=== PATIENT | male | born 1940 | race Caucasian/White ===

== ENCOUNTER → 2019-08-15 14:41 | Outpatient (CLI) | payer MEDICARE, SELFPAY ==
[2019-07-28 09:40] VITALS: BMI 22.9
--- NOTE | 2019-08-15 14:44 | ECHOD_ITS ---
Reason For Study: HTN Procedure This was a 2D Doppler, Color Flow transthoracic echocardiogram. The study was technically difficult. Exam performed in department. Left Ventricle Normal size and thickness. The estimated ejection fraction is 65 %. Stage 1 diastolic dysfunction. No regional wall motion abnormalities noted. Right Ventricle Normal size and thickness. Normal systolic function. Atria Normal left atrium. Normal right atrium. Normal atrial septum. Mitral Valve Mild diffuse mitral valve thickening. Tricuspid Valve Normal tricuspid valve. Unable to estimate RV systolic pressure due to insufficient tricuspid regurgitant envelope. Aortic Valve Trisinus/trileaflet aortic valve. Mild diffuse aortic valve thickening. There is no aortic stenosis. Trivial aortic valve insufficiency. Pulmonic Valve Normal pulmonic valve. Trivial pulmonic valve insufficiency. Great Vessels Normal aortic root. Mild atherosclerosis of the aortic arch. Normal inferior vena cava. Inferior vena cava collapse with sniff. Pericardium/Pleural No pericardial effusion. MMode/2D Measurements & Calculations LVIDd: 4.4 cm IVSd: 0.81 cm Ao root diam: 3.7 cm LVIDs: 3.4 cm LVPWd: 0.81 cm RVDd: 3.4 cm FS: 22.8 % LAV(MOD-bp): 23.8 ml LA A4 area: 13.0 cm2 LA dimension(2D): 3.0 cm LAV(MOD-bp) Indexed: 13.8 ml/m2 LAV(MOD-sp2): 20.0 ml LAV(MOD-sp4): 28.9 ml RA A4 area: 11.7 cm2 Time Measurements MV dec time: 0.22 sec Doppler Measurements & Calculations MV E max skinny: 79.9 cm/sec Lat Peak E' Skinny: 6.2 cm/sec Med Peak E' Skinny: 7.9 cm/sec MV A max skinny: 95.0 cm/sec E/E' lat: 12.9 E/E' med: 10.1 MV E/A: 0.84 Ao V2 max: 125.5 cm/sec LV V1 max: 105.6 cm/sec Ao max P.3 mmHg LV V1 max P.5 mmHg Interpretation Summary The estimated ejection fraction is 65 %. Stage 1 diastolic dysfunction. Unable to estimate RV systolic pressure due to insufficient tricuspid regurgitant envelope. There is no aortic stenosis. Compared to echo report dated 07/20/2013, no appreciable changes noted. Ordering Physician: Grant Davis Referring Physician: FELIPA SULLIVAN Performed By: Christy Esteban RDCS, RVT
== END ==
PROVIDERS: Family Provider Student in an Organized Health Care Education/Training Program; PCP Student in an Organized Health Care Education/Training Program; Referring Provider Internal Medicine Cardiovascular Disease; Visit Provider Internal Medicine Cardiovascular Disease
DX: I49.1 Atrial premature depolarization (principal); I10 Essential (primary) hypertension
CPT/HCPCS: 93306

== ENCOUNTER → 2023-12-02 | Outpatient (CLI) | payer MEDICARE, SELFPAY ==
--- OUTSIDE RECORDS SUMMARY | 2023-12-02 11:20 | XMS RPT_ITS | CCD ---
Author Name Unknown Address [address] [place] [address] Organization [facility] Care Team Providers Care Flour Blender Name Role Phone Aleah DIAZ, Rosmery Randolph Unavailable Unavailable Dwaine, JOE, Sheryl Celaya Unavailable Unavailabl e Eryn Gan Unavailable Unavailable Moshe SAWMILL WORKER.Gurvinder ALCOCER Primary Care Provider Moshe SAWMILL WORKER.Gurvinder ALCOCER Primary Care Provider Moshe SAWMILL WORKER.Gurvinder ALCOCER Primary Care Provider GURVINDER MORTENSEN Primary Care Unavailable RAYSHAWN RIDER Referring Unavaila ble GURVINDER MORTENSEN Primary Care Unavailable GURVINDER MORTENSEN Referring Unavailable GURVINDER MORTENSEN Referring Unavailable GURVINDER MORTENSEN Attending Unavailable GURVINDER MORTENSEN Primary Care Unavailable Allergies Allergy Classification Reported Allergen(s) Allergy Type Date of Onset Reaction(s) Facility (3 sources) acetaminophen / HYDROcodone Drug Allergy 3 GI upset (nausea, vomiting) [employer] Work Phone: (10 sources) Acetaminophen / HYDROcodone; Translations: [HYDROCODONE-ACETA MINOPHEN] Drug Allergy 3 Other: See Comments [facility] Medications Completed/Discontinued Medications Medication Drug Class(es) Dates Sig (Normalized) Sig (Original) aspirin 81 mg oral tablet (18 sources) Nonsteroidal Anti-inflammatory Drug Start: 07-14-2013 take 1 tablet by mouth once daily ASPIRIN 81 MG TABS One tablet by mouth daily ASPIRIN [id number] Grant Davis MD Problems Active Problems Problem Classification Problem Date Documented Da te Episodic/Chronic Cardiac dysrhythmias (15 sources) Premature atrial contraction; Translations: [Paroxysmal atrial fibrillation] Onset: 07-04-2016 07-04-2016 Chronic Conditions associated with dizziness or vertigo (1 source) Vertigo; Translations: [Dizziness and giddiness] Episodic Disorders of lipid metabolism (12 sources) Hyperlipidemia; Translations: [Hyperlipidemia, unspecified] Onset: 02-02-2020 02-02-2020 Chronic Essential hypertension (15 sources) Hypertensive disorder; Translations: [Essential hypertension] Onset: 06-30-2014 06-30-2014 Chronic Hyperplasia of prostate (12 sources) Weak urinary stream due to benign prostatic hypertrophy; Translations: [Benign prostatic hyperplasia with lower urinary tract symptoms] Onset: 02-01-2019 02-01-2019 Chronic Nutritional deficiencies (1 source) Vitamin D deficiency; Translations: [Vitamin D deficiency, unspecified] Chronic Other screening for suspected conditions (not mental disorders or infectious disease) (2 sources) Patient encounter status; Translations: [Encounter for screening for other suspected endocrine disorder] Onset: 08-07-2023 Episodic Past or Other Problems Problem Classification Problem Date Documented Date Episodic/Chronic Allergic reactions (2 sources) Environmental allergy; Translations: [Other allergy status, other than to drugs and biological substances] Onset: 01-22-2023 Episodic Cardiac dysrhythmias (9 sources) Tachycardia; Translations: [Palpitations] Onset: 07-07-2013 Resolved: 07-04-2016 07-04-2016 Episodic Deficiency and other anemia (9 sources) Anemia; Translations: [Anemia, unspecified] Onset: 02-01-2019 02-01-2019 Episodic Genitourinary symptoms and ill-defined conditions (1 source) Poor urinary stream; Translations: [Benign prostatic hyperplasia with weak urinary stream] Onset: 02-01-2019 Episodic Unclassified (6 sources) Family history of ischemic heart disease and other diseases of the circulatory system; Translations: [FH: Hypertension] 07-11-2014 Episodic Results Test Name Value Interpretation Reference Range Facil ity Vital Signs Date Time Vital Sign Value Performing Clinician Facility 01-22-2023 11:06-0400 Diastolic blood pressure 70 mm[Hg] Gurvinder Mortesnen APRN.CNP Work Phone: [facility] 01-22-2023 11:06-0400 Systolic blood pressure 132 mm[Hg] Gurvinder Mortensen APRN.CNP Work Phone: [facility] 01-22-2023 10:51-0400 Body height 172.7 cm Gurvinder Moshe SAWMILL WORKER.APPLICATION SUPPORT ANALYST Work Phone: [facility] 01-22-2023 10:51-0400 Body temperature 97.59 [degF] Gurvinder Moshe SAWMILL WORKER.APPLICATION SUPPORT ANALYST Work Phone: [facility] 01-22-2023 10:51-0400 Body weight 63.05 kg Gurvinder Moshe SAWMILL WORKER.APPLICATION SUPPORT ANALYST Work Phone: [facility] 01-22-2023 10:51-0400 Heart rate 59 /min Gurvinder Moshe SAWMILL WORKER.APPLICATION SUPPORT ANALYST Work Phone: [facility] 01-22-2023 10:51-0400 Respiratory rate 18 /min Gurvinder Moshe SAWMILL WORKER.APPLICATION SUPPORT ANALYST Work Phone: [facility] 01-22-2023 10:51-0400 SaO2% (BldA) [Mass fraction] 97 % Gurvinder Moshe SAWMILL WORKER.APPLICATION SUPPORT ANALYST Work Phone: [facility] 05-29-2022 09:31-0400 Body height 172.7 cm Gurvinder Moshe SAWMILL WORKER.APPLICATION SUPPORT ANALYST Work Phone: [facility] 05-29-2022 09:31-0400 Body temperature 98.2 [degF] Gurvinder Moshe SAWMILL WORKER.APPLICATION SUPPORT ANALYST Work Phone: [facility] 05-29-2022 09:31-0400 Body weight 62.14 kg Gurvinder Moshe SAWMILL WORKER.APPLICATION SUPPORT ANALYST Work Phone: [facility] 05-29-2022 09:31-0400 Diastolic blood pressure 70 mm[Hg] Gurvinder Moshe SAWMILL WORKER.APPLICATION SUPPORT ANALYST Work Phone: [facility] 05-29-2022 09:31-0400 Heart rate 53 /min Gurvinder Moshe SAWMILL WORKER.APPLICATION SUPPORT ANALYST Work Phone: [facility] 05-29-2022 09:31-0400 Respiratory rate 18 /min Gurvinder Moshe SAWMILL WORKER.APPLICATION SUPPORT ANALYST Work Phone: [facility] 05-29-2022 09:31-0400 SaO2% (BldA) [Mass fraction] 98 % Gurvinder Moshe SAWMILL WORKER.APPLICATION SUPPORT ANALYST Work Phone: [facility] 05-29-2022 09:31-0400 Systolic blood pressure 128 mm[Hg] Gurvinder Moshe SAWMILL WORKER.APPLICATION SUPPORT ANALYST Work Phone: [facility] 04-28-2022 11:33-0400 Body height 172.7 cm Gurvinder Moshe SAWMILL WORKER.APPLICATION SUPPORT ANALYST Work Phone: [facility] 04-28-2022 11:33-0400 Body temperature 98.2 [degF] Gurvinder Moshe SAWMILL WORKER.APPLICATION SUPPORT ANALYST Work Phone: [facility] 04-28-2022 11:33-0400 Body weight 60.33 kg Gurvinder Moshe SAWMILL WORKER.APPLICATION SUPPORT ANALYST Work Phone: [facility] 04-28-2022 11:33-0400 Respiratory rate 18 /min Gurvinder Moshe SAWMILL WORKER.APPLICATION SUPPORT ANALYST Work Phone: [facility] 04-28-2022 11:33-0400 SaO2% (BldA) [Mass fraction] 97 % Gurvinder Moshe SAWMILL WORKER.APPLICATION SUPPORT ANALYST Work Phone: [facility] 01-15-2017 14:05-0400 BMI (Body Mass Index) 20.77 kg/m2 JOE [facility] Work Phone: 01-15-2017 14:05-0400 BP Diastolic 70 mm[Hg] JOE [facility] Work Phone: 01-15-2017 14:05-0400 BP Systolic 134 mm[Hg] JOE [facility] Work Phone: 01-15-2017 14:05-0400 Height 172.72 cm JOE [facility] Work Phone: 01-15-2017 14:05-0400 Pulse (Heart Rate) 80 /min [facility] Work Phone: 01-15-2017 14:05-0400 Respiratory Rate 18 /min [facility] Work Phone: 01-15-2017 14:05-0400 Weight 61.96 kg JOE [facility] Work Phone: 07-11-2016 09:47-0400 BSA (Body Surface Area) 1.76 m2 JOE [facility] Work Phone: 07-11-2016 09:47-0400 Pulse Oximetry 96 % JOE [facility] Work Phone: Encounters Encounter Date Encounter Type Care Provider Facility Start: 08-07-2023 End: 08-08-2023 ambulatory GURVINDER MORTENSEN Facility:[facility] Start: 01-28-2023 Telephone encounter Gurvinder Mortensen SAWMILL WORKER.APPLICATION SUPPORT ANALYST Work Phone: [facility] Procedures Date Procedure Procedure Detail Performing Clinician Start: 07-15-2017 End: 07-20-2017 *Hepatic Function Panel Grant Davis MD Work Phone: Start: 07-15-2017 End: 07-20-2017 Lipid 1996 panel - Serum or Plasma Grant Davis MD Work Phone: Start: 01-15-2017 End: 01-15-2017 RON Meza CARDIOVASCULAR SURGICAL TECH-C Start: 01-15-2017 End: 01-15-2017 Follow Up Appt 6 months Patel Meza CARDIOVASCULAR SURGICAL TECH -C Start: 07-11-2016 End: 07-14-2016 *Hepatic Function Panel Grant Davis MD Work Phone: Start: 07-11-2016 End: 07-11-2016 RON Davis MD Work Phone: Start: 07-11-2016 End: 07-11-2016 Follow Up Appt 6 months Grant Davis MD Work Phone: Start: 07-11-2016 End: 07-14-2016 Lipid 1996 panel - Serum or Plasma Grant Davis MD Work Phone: Start: 07-16-2015 End: 07-16-2015 RON Davis MD Work Phone: Start: 07-16-2015 End: 07-16-2015 Follow Up Appt 1 year Yomi Golden Work Phone: Start: 07-16-2015 End: 07-16-2015 Follow Up BP Check Grant Davis MD Work Phone: Start: 07-11-2014 End: 07-11-2014 RON Davis MD Work Phone: Start: 07-11-2014 End: 07-11-2014 Follow Up Appt 1 year Yomi Golden Work Phone: Start: 06-30-2014 End: 07-05-2015 *Microalbumin, Creatine Ratio, rand urine Grant Davis MD Work Phone: Start: 07-14-2013 End: 07-14-2013 RON Davis MD Work Phone: Start: 07-14-2013 End: 07-22-2013 Echocardiography Grant Davis MD Work Phone: Start: 07-14-2013 End: 07-14-2013 Follow Up Appt 1 year Yomi Golden Work Phone: Start: 07-14-2013 End: 06-30-2014 Xtrnl mobile cv telemetry w/i&report 30 days Garnt Davis MD Work Phone: Plan of Treatment Date Care Activity Detail Author Start: 02-02-2028 Urine microalbumin profile DTA P,TDAP,TD (2 - Td or Tdap) [facility] Start: 01-22-2026 DIABETES SCREEN DIABETES SCREEN [facility] Start: 05-29-2025 DIABETES SCREEN DIABETES SCREEN [facility] Start: 04-08-2025 DIABETES SCREEN DIABETES SCREEN [facility] Start: 05-22-2023 Influenza vaccination INFLUENZ A (Season Ended) [facility] Start: 04-28-2023 COVID-19 VACCINE (4 - Booster for Moderna series) COVID-19 VACCINE (4 - Booster for Moderna series) [facility] Immunizations Immunization Date Immunization Notes Care Provider Donaldo preciado 07-23-2020 zoster vaccine, recombinant, adjuvanted, (SHINGRIX) 50 mcg/0.5 mL injection Marlin López MA [facility] Work Phone: Payers Date Payer Category Payer Medicare UHC AARP MEDICAR E UHC AARP MEDICARE HMO [id number] 2019-Present [phone] [address] [address] [place] [address] [facility] [id number] 2019 Medicare UHC AARP MEDICAR E UHC AARP MEDICARE HMO [id number] 2019-Present [phone] [address] [address] [place] [address] [facility] [id number] 2019 Medicare [id number] Social History Date Type Detail Facility Start: 09-29-2017 [facility] History of tobacco use Pipe Smoker [facility] History of tobacco use Cigar Smoker [facility] Start: 09-29-2017 Tobacco use and exposure Tong mosher smokeless tobacco user [facility] Start: 04-08-2022 End: 01-22-2023 Alcohol intake Current drinker of alcohol (finding) [facility] Start: 09-29-2017 History SDOH Alcohol Comment Occasional Beer and Wine [facility] Start: 09-29-2017 Tobacco Comment 23 years ago [facility] Start: 1940 Sex Assigned At Not on file [facility] Start: 03-29-2022 End: 05-29-2022 Exposure to SARS-CoV-2 (event) Not sure [facility] Start: 04-07-2022 End: 04-17-2022 Exposure to SARS-CoV-2 (event) Unable to assess [facility] History of tobacco use Current smoker [facility] Clinical Notes 04-10-2022 to 01-28-2023 Telephone Encounter - Nery Melendrez MA - 01/28/2023 2:58 PM EDTTelephone Encounter - Nery Melendrez MA - 01/28/2023 2:58 PM EDTTelephone Encounter - Nery Melendrez MA - 01/22/2023 4:16 PM EDT Note Date & Type Note Facility 01-28-2023 Miscellaneous Notes Called pt left VM with results faxed results to his urologist Nery Melendrez MA ----- Message from Gurvinder Mortensen APRN.APPLICATION SUPPORT ANALYST sent at 01/26/2023 6:53 AM EDT ----- Psa remains elevated but much improved and lower than previous years. Please fax copy to Dr Bernard his Urologist. documented in this encounter [facility] 01-22-2023 Miscellaneous Notes Called pt let pts know the results Nery Melendrez MA ----- Message from Gurvinder Mortensen APRN.APPLICATION SUPPORT ANALYST sent at 01/22/2023 12:36 PM EDT ----- CMP unremarkable. Sugar stable Lipids at goal ----- Message from Gurvinder Mortensen APRN.APPLICATION SUPPORT ANALYST sent at 01/22/2023 12:25 PM EDT ----- Cbc stable with improvement in his HGB documented in this encounter [facility] 01-22-2023 Note HNO ID: [id number] Author: Gurvinder Mortensen APRN.APPLICATION SUPPORT ANALYST Service: ? Author Type: Nurse Practitioner Type: Progress Notes Filed: 01/22/2023 12:35 PM Note Text: SUBJECTIVE: Ruma Mcintyre is a 82 year old male who presents in follow up of HTN. PMH afib, anemia, and HLD. Patient denies changes in health since last office visit. Reports feeling well. Denies concerns or complaints today. I reviewed his past medical, surgical, social, and family histories today and updated chart. Allergies, chronic medications, and supplements were also reviewed and his list is now up to date. HTN: Mr. Mcintyre indicates that he is feeling well and denies any symptoms referable to elevated blood pressure. Specifically denies headache, chest pain, palpitations, dyspnea, peripheral edema, claudication symptoms, orthopnea, fatigue, and PND. Patient denies any side effects of his medication(s) and is compliant with their regimen. He does not check BP's generally. Ruma denies regular aerobic exercise but is very active.. He watches his diet for sodium, low fat and low cholesterol generally not very much. He is taking metoprolol 25 mg twice daily. Last 3 Encounter BP Readings: Date: BP: 05/29/2022 128/70 04/08/2022 165/74 07/23/2020 142/70 Atrial Fib: he is seeing cardiology, Dr Page (was seeing Dr Davis who is no longer there) in [place] for mangement. He was last seen 11/28/19. He is taking metoprolol for management. Reports he saw cardiology in May. Reports no changes made. Reports he was told his afib is controlled. BPH: He sees urology Dr Bernard in [place] for elevated PSA. He followed up with him last year. No changes made. He is taking proscar daily. Reports he continues with dribble but denies change or worsening of symptom Some elements of above documentation were copied from my progress note of 07/23/20 and have been reexamined and updated where appropriate. All elements reflect the current assessment and medical decision making today . PAST MEDICAL HISTORY Diagnosis Date A-fib (HCC) Arthritis Hypertension Multiple allergies Prostate disorder PAST SURGICAL HISTORY Procedure Laterality Date EXTENSIVE ANKLE/HEEL SURGERY Right 1993 Shattered Heel HERNIA REPAIR HX 2000 Double Hernia Social History Tobacco Use Smoking status: Former Types: Pipe, Cigars Smokeless tobacco: Former Tobacco comments: 23 years ago Substance Use Topics Alcohol use: Yes Comment: Occasional Beer and Wine Drug use: No Family history reviewed. ALLERGIES Allergen Reactions Hydrocodone-Acetami* Other: See Comments Current Outpatient Medications Medication Sig meclizine (ANTIVERT) 25 mg tab Take 1 tablet by mouth three times daily as needed for up to 30 doses. zoster vaccine, recombinant, adjuvanted, (SHINGRIX) 50 mcg/0.5 mL injection Inject 0.5 mL intramuscularly now and repeat 2nd dose in 2-6 months potassium gluconate 595 mg (99 mg) TbER Take 1 tablet by mouth once daily. METOPROLOL SUCCINATE ORAL Take 25 mg by mouth twice daily. aspirin, enteric coated (ASPIRIN, ENTERIC COATED) 81 mg EC tablet Take 81 mg by mouth once daily. VITAMIN E, DL,TOCOPHERYL ACET, (VITAMIN E, DL, ACETATE,) 400 unit capsule Take 400 Units by mouth once daily. UBIDECARENONE (ULTRA COQ10 ORAL) Take 200 mg by mouth once daily. TURMERIC, BULK, MISC 500 mg once daily. GLUCOSAM/TIP-MSM1/C/MADI/BOSW (OSTEO BI-FLEX TRIPLE STRENGTH ORAL) Take 1 capsule by mouth once daily. [id number] acid-lutein 400-250 mcg chew Taking every other day Lactobacillus acidophilus 10 billion cell cap Probiotic 10 billion cell capsule Saw Cochran 500 mg cap saw palmetto 500 mg capsule No current facility-administered medications for this visit. Review of Systems Constitutional: Negative for chills, diaphoresis, fever, malaise/fatigue and weight loss. HENT: Negative. Negative for congestion, ear pain, sore throat and tinnitus. Eyes: Negative for blurred vision, double vision, photophobia and pain. Respiratory: Negative for cough, sputum production, shortness of breath and wheezing. Cardiovascular: Negative for chest pain, palpitations, orthopnea and leg swelling. Gastrointestinal: Negative for abdominal pain, blood in stool, constipation, diarrhea, heartburn, melena, nausea and vomiting. Genitourinary: Negative for dysuria, frequency, hematuria and urgency. Musculoskeletal: Positive for joint pain. Negative for back pain, falls, myalgias and neck pain. Reports all over joint pain. States every year gets worse. Da reports some days he has hard time lifting arms. He will occasionally take a tylenol PM 2 at bedtime to help him sleep. Pain left shoulder since last fall when he was working in his basement when he had something and a level hit him in shoulder Skin: Negative for itching and rash. Neurological: Negative for dizziness, tingling, tremors, sensory change, speech change, focal weakness, weakness (more content not included)... [facility] 01-22-2023 Instructions Gurvinder Mortensen APRN.APPLICATION SUPPORT ANALYST - 01/22/2023 11:38 AM EDT ASSESSMENT/PLAN: 1. Essential hypertension - ICD9: 401.9, ICD10: I10 (primary diagnosis) - good control - Continue current medication(s) - Encouraged dietary sodium restriction/DASH diet - Recommended regular aerobic exercise. - Recommend home blood pressure monitoring, to bring results in on next visit - Reviewed risks of HTN and principles of treatment - Goal of BP <130/80 - CBC - COMP METABOLIC PANEL 2. Paroxysmal atrial fibrillation (HCC) - ICD9: 427.31, ICD10: I48.0 - chronic, stable - continue daily asa, metoprolol and management with cardiology 3. Hyperlipidemia, unspecified hyperlipidemia type - ICD9: 272.4, ICD10: E78.5 - to be determined upon return of lab results - Discussed the benefits of regular aerobic exercise and weight loss. - Check fasting lipid panel - Encouraged following a low carbohydrate, healthy oil intake diet. - LIPID PANEL BASIC 4. Benign prostatic hyperplasia with weak urinary stream - ICD9: 600.01, 788.62, ICD10: N40.1, R39.12 - chronic, controlled - PSA/PROSTSPECAG DIAG 5. Environmental allergies - ICD9: V15.09, ICD10: Z91.09 - start Claritin 10 mg once daily Gurvinder Mortensen APRN.APPLICATION SUPPORT ANALYST documented in this encounter [facility] 01-22-2023 History of Presen t illness Narrative SUBJECTIVE: Ruma Mcintyre is a 82 year old male who presents in follow up of HTN. PMH afib, anemia, and HLD. Patient denies changes in health since last office visit. Reports feeling well. Denies concerns or complaints today. I reviewed his past medical, surgical, social, and family histories today and updated chart. Allergies, chronic medications, and supplements were also reviewed and his list is now up to date. HTN: Mr. Mcintyre indicates that he is feeling well and denies any symptoms referable to elevated blood pressure. Specifically denies headache, chest pain, palpitations, dyspnea, peripheral edema, claudication symptoms, orthopnea, fatigue, and PND. Patient denies any side effects of his medication(s) and is compliant with their regimen. He does not check BP's generally. Ruma denies regular aerobic exercise but is very active.. He watches his diet for sodium, low fat and low cholesterol generally not very much. He is taking metoprolol 25 mg twice daily. Last 3 Encounter BP Readings: Date: BP: 05/29/2022 128/70 04/08/2022 165/74 07/23/2020 142/70 Atrial Fib: he is seeing cardiology, Dr Page (was seeing Dr Davis who is no longer there) in [place] for mangement. He was last seen 11/28/19. He is taking metoprolol for management. Reports he saw cardiology in May. Reports no changes made. Reports he was told his afib is controlled. BPH: He sees urology Dr Bernard in [place] for elevated PSA. He followed up with him last year. No changes made. He is taking proscar daily. Reports he continues with dribble but denies change or worsening of symptom Some elements of above documentation were copied from my progress note of 07/23/20 and have been reexamined and updated where appropriate. All elements reflect the current assessment and medical decision making today . PAST MEDICAL HISTORY Diagnosis Date A-fib (HCC) Arthritis Hypertension Multiple allergies Prostate disorder PAST SURGICAL HISTORY Procedure Laterality Date EXTENSIVE ANKLE/HEEL SURGERY Right 1993 Shattered Heel HERNIA REPAIR HX 1999 Double Hernia Social History Tobacco Use Smoking status: Former Types: Pipe, Cigars Smokeless tobacco: Former Tobacco comments: 23 years ago Substance Use Topics Alcohol use: Yes Comment: Occasional Beer and Wine Drug use: No Family history reviewed. ALLERGIES Allergen Reactions Hydrocodone-Acetami* Other: See Comments Current Outpatient Medications Medication Sig meclizine (ANTIVERT) 25 mg tab Take 1 tablet by mouth three times daily as needed for up to 30 doses. zoster vaccine, recombinant, adjuvanted, (SHINGRIX) 50 mcg/0.5 mL injection Inject 0.5 mL intramuscularly now and repeat 2nd dose in 2-6 months potassium gluconate 595 mg (99 mg) TbER Take 1 tablet by mouth once daily. METOPROLOL SUCCINATE ORAL Take 25 mg by mouth twice daily. aspirin, enteric coated (ASPIRIN, ENTERIC COATED) 81 mg EC tablet Take 81 mg by mouth once daily. VITAMIN E, DL,TOCOPHERYL ACET, (VITAMIN E, DL, ACETATE,) 400 unit capsule Take 400 Units by mouth once daily. UBIDECARENONE (ULTRA COQ10 ORAL) Take 200 mg by mouth once daily. TURMERIC, BULK, MISC 500 mg once daily. GLUCOSAM/TIP-MSM1/C/MADI/BOSW (OSTEO BI-FLEX TRIPLE STRENGTH ORAL) Take 1 capsule by mouth once daily. [id number]-rls-[id number] acid-lutein 400-250 mcg chew Taking every other day Lactobacillus acidophilus 10 billion cell cap Probiotic 10 billion cell capsule Saw Cochran 500 mg cap saw palmetto 500 mg capsule No current facility-administered medications for this visit. Review of Systems Constitutional: Negative for chills, diaphoresis, fever, malaise/fatigue and weight loss. HENT: Negative. Negative for congestion, ear pain, sore throat and tinnitus. Eyes: Negative for blurred vision, double vision, photophobia and pain. Respiratory: Negative for cough, sputum production, shortness of breath and wheezing. Cardiovascular: Negative for chest pain, palpitations, orthopnea and leg swelling. Gastrointestinal: Negative for abdominal pain, blood in stool, constipation, diarrhea, heartburn, melena, nausea and vomiting. Genitourinary: Negative for dysuria, frequency, hematuria and urgency. Musculoskeletal: Positive for joint pain. Negative for back pain, falls, myalgias and neck pain. Reports all over joint pain. States every year gets worse. Da reports some days he has hard time lifting arms. He will occasionally take a tylenol PM 2 at bedtime to help him sleep. Pain left shoulder since last fall when he was working in his basement when he had something and a level hit him in shoulder Skin: Negative for itching and rash. Neurological: Negative for dizziness, tingling, tremors, sensory change, speech change, focal weakness, weakness and headaches. Endo/Heme/Allergies: Negative for environmental allergies and polydipsia. Does not bruise/bleed easily. Psychiatric/Behavioral: Negative for depression, memory loss and substance abuse. The patient has insomnia. The patient is not nervous/anxious. Reports he has spirits that will visit him at night. States this has been going on for years. States they will wake him up. Da agrees. Pt is not confused. Da reports she has witnessed some stuff as well. Also reports his neighbors has same thing occurring at their house. Reports he tries to ignore them Reports he cant sleep in one room because they will tell him to get out. States they do wake him. 01/22/23 1051 01/22/23 1106 BP: 158/70 132/70 BP Site: Right Arm BP Position: Sitting BP Cuff Size: Regular Adult Pulse: (!) 59 Resp: 18 Temp: 36.4 C (97.6 F) TempSrc: Oral SpO2: 97% Weight: 63 kg (139 lb) Height: 172.7 cm (5' 8 ) Physical Exam Vitals and nursing note reviewed. Constitutional: General: He is not in acute distress. Appearance: Normal appearance. He is not ill-appearing. HENT: Head: Normocephalic and atraumatic. Mouth/Throat: Mouth: Mucous membranes are moist. Eyes: Pupils: Pupils are equal, round, and reactive to light. Neck: Vascular: No carotid bruit. Cardiovascular: Rate and Rhythm: Normal rate and regular rhythm. Pulses: Normal pulses. Carotid pulses are 2+ on the right side and 2+ on the left side. Radial pulses are 2+ on the right side and 2+ on the left side. Heart sounds: Normal heart sounds, S1 normal and S2 normal. No murmur heard. Pulmonary: Effort: Pulmonary effort is normal. No respiratory distress. Breath sounds: Normal breath sounds. No decreased breath sounds, wheezing, rhonchi or rales. Abdominal: General: Abdomen is flat. Palpations: Abdomen is soft. Tenderness: There is no abdominal tenderness. Musculoskeletal: Right lower leg: No edema. Left lower leg: No edema. Lymphadenopathy: Cervical: No cervical adenopathy. Skin: General: Skin is warm and dry. Neurological: Mental Status: He is alert and oriented to person, place, and time. Psychiatric: Attention and Perception: Attention and perception normal. Mood and Affect: Mood normal. Speech: Speech normal. Behavior: Behavior normal. Behavior is cooperative. Thought Content: Thought content normal. Cognition and Memory: Cognition and memory normal. Judgment: Judgment normal. Component Latest Ref Rng & Units 05/29/2022 Protein, Total 6.3 - 8.0 g/dL 7.1 Albumin 3.9 - 4.9 g/dL 4.7 Calcium 8.5 - 10.2 mg/dL 9.5 Bilirubin, Total 0.2 - 1.3 mg/dL 0.5 Alkaline Phosphatase 38 - 113 U/L 64 AST 14 - 40 U/L 19 ALT 10 - 54 U/L 11 Glucose 74 - 99 mg/dL 100 (H) BUN 9 - 24 mg/dL 13 Creatinine 0.73 - 1.22 mg/dL 0.78 Sodium 136 - 144 mmol/L 142 Potassium 3.7 - 5.1 mmol/L 4.6 Chloride 97 - 105 mmol/L 104 CO2 22 - 30 mmol/L 28 Anion Gap 9 - 18 mmol/L 10 eGFR >=60 mL/min/1.73m 88 WBC 3.70 - 11.00 k/uL 5.85 RBC 4.20 - 6.00 m/uL 3.92 (L) Hemoglobin 13.0 - 17.0 g/dL 12.7 (L) Hematocrit 39.0 - 51.0 % 38.2 (L) MCV 80.0 - 100.0 fL 97.4 MCH 26.0 - 34.0 pg 32.4 MCHC 30.5 - 36.0 g/dL 33.2 RDW-CV 11.5 - 15.0 % 12.2 Platelet Count 150 - 400 k/uL 257 MPV 9.0 - 12.7 fL 9.6 Cholesterol, Total <200 mg/dL 185 Triglyceride <150 mg/dL 61 HDL Cholesterol >39 mg/dL 64 Non HDL Cholesterol <130 mg/dL 121 Fasting Time hrs 12 VLDL Cholesterol <30 mg/dL 12 TC:HDL Ratio <5.10 2.89 LDL Cholesterol <100 mg/dL 109 (H) LDL:HDL Ratio <2.54 1.70 PSA 0.00 - 3.90 ng/mL 9.84 (H) Vitamin D 25 Hydroxy >=30.0 ng/mL 51.6 TSH 0.270 - 4.200 mIU/L 3.310 ASSESSMENT/PLAN: 1. Essential hypertension - ICD9: 401.9, ICD10: I10 (primary diagnosis) - good control - Continue current medication(s) - Encouraged dietary sodium restriction/DASH diet - Recommended regular aerobic exercise. - Recommend home blood pressure monitoring, to bring results in on next visit - Reviewed risks of HTN and principles of treatment - Goal of BP <130/80 - CBC - COMP METABOLIC PANEL 2. Paroxysmal atrial fibrillation (HCC) - ICD9: 427.31, ICD10: I48.0 - chronic, stable - continue daily asa, metoprolol and management with cardiology 3. Hyperlipidemia, unspecified hyperlipidemia type - ICD9: 272.4, ICD10: E78.5 - to be determined upon return of lab results - Discussed the benefits of regular aerobic exercise and weight loss. - Check fasting lipid panel - Encouraged following a low carbohydrate, healthy oil intake diet. - LIPID PANEL BASIC 4. Benign prostatic hyperplasia with weak urinary stream - ICD9: 600.01, 788.62, ICD10: N40.1, R39.12 - chronic, controlled - PSA/PROSTSPECAG DIAG 5. Environmental allergies - ICD9: V15.09, ICD10: Z91.09 - start Claritin 10 mg once daily Gurvinder Mortensen APRN.APPLICATION SUPPORT ANALYST documented in this encounter [facility] 06-03-2022 Miscellaneous Notes Called pt left VM with results Nery Melendrez MA ----- Message from Gurvinder Mortensen APRN.APPLICATION SUPPORT ANALYST sent at 06/01/2022 9:00 PM EDT ----- Vit d wnl Psa remains elevated. Inquire if he is still seeing urologist Dr bernard. If so please send him results. If not recommend he follow up with him. documented in this encounter [facility] 05-29-2022 Miscellaneous Notes Called pt left VM with results Nery Melendrez MA ----- Message from Guvrinder Mortensen APRN.APPLICATION SUPPORT ANALYST sent at 05/29/2022 1:02 PM EDT ----- CMP, TSH, lipids are unremarkable CBC anemia stable. documented in this encounter [facility] 05-29-2022 Instructions Gurvinder Mortensen APRN.APPLICATION SUPPORT ANALYST - 05/29/2022 10:24 AM EDT ASSESSMENT/PLAN: 1. Wellness examination - ICD9: V70.0, ICD10: Z00.00 (primary diagnosis) - Counseled on healthy diet and regular exercise - Counseled on limiting alcohol intake to 2 drinks per day - Depression screening tool completed and reviewed with patient. Based on score and interview, patient is at risk for depression and recommended no further intervention at this time. - Follow up for annual exam in one year 2. Essential hypertension - ICD9: 401.9, ICD10: I10 - good control - Continue current medication(s) - Encouraged dietary sodium restriction/DASH diet - Recommended regular aerobic exercise. - Recommend home blood pressure monitoring, to bring results in on next visit - Reviewed risks of HTN and principles of treatment - Goal of BP <130/80 - Recommended no refined sugar, low refined starch, healthy oil intake (olive oil), healthy protein (fish) along the lines of the Mediterranean diet. - CBC - COMP METABOLIC PANEL 3. Paroxysmal atrial fibrillation (HCC) - ICD9: 427.31, ICD10: I48.0 - Chronic stable - continue metoprolol and management with Dr Page 4. Benign prostatic hyperplasia with weak urinary stream - ICD9: 600.01, 788.62, ICD10: N40.1, R39.12 - asymptomatic - PSA/PROSTSPECAG DIAG 5. Hyperlipidemia, unspecified hyperlipidemia type - ICD9: 272.4, ICD10: E78.5 - to be determined upon return of lab results - Continue current medication. - Encouraged following a low fat, low cholesterol diet. - Discussed the benefits of regular aerobic exercise and weight loss. - Check fasting lipid panel - Encouraged following a low carbohydrate, healthy oil intake diet. - LIPID PANEL BASIC 6. Vitamin D deficiency - ICD9: 268.9, ICD10: E55.9 - VITAMIN D 25 HYDROXY 7. Screening for thyroid disorder - ICD9: V77.0, ICD10: Z13.29 - TSH BLD Gurvinder Mortensen APRN.APPLICATION SUPPORT ANALYST documented in this encounter [facility] 05-29-2022 History of Presen t illness Narrative SUBJECTIVE: Ruma Mcintyre is a 82 year old male who presents in follow up of HTN. PMH afib, anemia, and HLD. Patient denies changes in health since last office visit. Reports feeling well. Denies concerns or complaints today. I reviewed his past medical, surgical, social, and family histories today and updated chart. Allergies, chronic medications, and supplements were also reviewed and his list is now up to date. HTN: Mr. Mcintyre indicates that he is feeling well and denies any symptoms referable to elevated blood pressure. Specifically denies headache, chest pain, dyspnea, peripheral edema, claudication symptoms, orthopnea, fatigue, and PND. Patient denies any side effects of his medication(s) and is compliant with their regimen. He does check BP's away from this office with average BP's in the 120-130s/60s range with occasional low readings. Diastolic reports as low as 48. Ruma works out regularly 7 times per week with walking and very active in yard. He watches his diet for sodium, low fat and low cholesterol most of the time. He is taking metoprolol 25 mg twice daily. He sees dipper and drier at [facility], Dr Page. He has appt in 2 wks for follow up. Last 3 Encounter BP Readings: Date: BP: 05/29/2022 128/70 04/08/2022 165/74 07/23/2020 142/70 Preventative: he has had 3 COVID vaccines. He is not interested in flu vaccine. He drinks beer occasionally. Reports drinking 4-5 beers a day 4-5x/day. PAST MEDICAL HISTORY Diagnosis Date A-fib (HCC) Arthritis Hypertension Multiple allergies Prostate disorder PAST SURGICAL HISTORY Procedure Laterality Date EXTENSIVE ANKLE/HEEL SURGERY Right 1993 Shattered Heel HERNIA REPAIR HX 2000 Double Hernia Social History Tobacco Use Smoking status: Former Types: Pipe, Cigars Smokeless tobacco: Former Tobacco comments: 23 years ago Substance Use Topics Alcohol use: Yes Comment: Occasional Beer and Wine Drug use: No Family history reviewed. ALLERGIES Allergen Reactions Hydrocodone-Acetami* Other: See Comments Current Outpatient Medications Medication Sig meclizine (ANTIVERT) 25 mg tab Take 1 tablet by mouth three times daily as needed for up to 30 doses. potassium gluconate 595 mg (99 mg) TbER Take 1 tablet by mouth once daily. METOPROLOL SUCCINATE ORAL Take 25 mg by mouth twice daily. aspirin, enteric coated (ASPIRIN, ENTERIC COATED) 81 mg EC tablet Take 81 mg by mouth once daily. VITAMIN E, DL,TOCOPHERYL ACET, (VITAMIN E, DL, ACETATE,) 400 unit capsule Take 400 Units by mouth once daily. UBIDECARENONE (ULTRA COQ10 ORAL) Take 200 mg by mouth once daily. TURMERIC, BULK, MISC 500 mg once daily. GLUCOSAM/TIP-MSM1/C/MADI/BOSW (OSTEO BI-FLEX TRIPLE STRENGTH ORAL) Take 1 capsule by mouth once daily. gq-[id number] acid-lutein 400-250 mcg chew Taking every other day Lactobacillus acidophilus 10 billion cell cap Probiotic 10 billion cell capsule Saw Cochran 500 mg cap saw palmetto 500 mg capsule zoster vaccine, recombinant, adjuvanted, (SHINGRIX) 50 mcg/0.5 mL injection Inject 0.5 mL intramuscularly now and repeat 2nd dose in 2-6 months No current facility-administered medications for this visit. Review of Systems Constitutional: Negative for chills, diaphoresis, fever, malaise/fatigue and weight loss. HENT: Negative. Negative for congestion, ear pain, sore throat and tinnitus. Eyes: Negative for blurred vision, double vision, photophobia and pain. Respiratory: Negative for cough, sputum production, shortness of breath and wheezing. Cardiovascular: Positive for palpitations. Negative for chest pain, orthopnea and leg swelling. Reports he can feel palpitations on occasionally. States 2-3x/wk. States it will wake him from sleep. States he moves around and it will resolve. Lasts at most 1-2 minutes. Admits to drinking about 4 cups of coffee a day. Gastrointestinal: Negative for abdominal pain, blood in stool, constipation, diarrhea, heartburn, melena, nausea and vomiting. Genitourinary: Negative for dysuria, frequency, hematuria and urgency. Musculoskeletal: Negative for back pain, falls, joint pain, myalgias and neck pain. Skin: Negative for itching and rash. Neurological: Positive for dizziness. Negative for tingling, tremors, sensory change, speech change, focal weakness, weakness and headaches. Dizziness in am when goes to get out of bed. Endo/Heme/Allergies: Negative for environmental allergies and polydipsia. Does not bruise/bleed easily. Psychiatric/Behavioral: Negative for depression and substance abuse. The patient is not nervous/anxious and does not have insomnia. BP 128/70 Pulse 53 Temp (Src) 98.2 (Oral) Resp 18 Ht 5' 8 (1.73m) Wt 137 lb (62.1kg) SpO2 98% BMI 20.84 kg/(m^2). Physical Exam Vitals and nursing note reviewed. Constitutional: General: He is not in acute distress. Appearance: Normal appearance. He is not ill-appearing. HENT: Head: Normocephalic and atraumatic. Right Ear: Tympanic membrane, ear canal and external ear normal. Decreased hearing noted. Left Ear: Tympanic membrane, ear canal and external ear normal. Decreased hearing noted. Ears: Comments: Bilateral hearing aides Cardiovascular: Rate and Rhythm: Normal rate and regular rhythm. Pulses: Normal pulses. Heart sounds: Normal heart sounds. Pulmonary: Effort: Pulmonary effort is normal. No respiratory distress. Breath sounds: Normal breath sounds. No wheezing or rhonchi. Musculoskeletal: General: Normal range of motion. Neurological: Mental Status: He is alert and oriented to person, place, and time. Psychiatric: Mood and Affect: Mood normal. Behavior: Behavior normal. Thought Content: Thought content normal. Judgment: Judgment normal. ASSESSMENT/PLAN: 1. Wellness examination - ICD9: V70.0, ICD10: Z00.00 (primary diagnosis) - Counseled on healthy diet and regular exercise - Counseled on limiting alcohol intake to 2 drinks per day - Depression screening tool completed and reviewed with patient. Based on score and interview, patient is at risk for depression and recommended no further intervention at this time. - Follow up for annual exam in one year 2. Essential hypertension - ICD9: 401.9, ICD10: I10 - good control - Continue current medication(s) - Encouraged dietary sodium restriction/DASH diet - Recommended regular aerobic exercise. - Recommend home blood pressure monitoring, to bring results in on next visit - Reviewed risks of HTN and principles of treatment - Goal of BP <130/80 - Recommended no refined sugar, low refined starch, healthy oil intake (olive oil), healthy protein (fish) along the lines of the Mediterranean diet. - CBC - COMP METABOLIC PANEL 3. Paroxysmal atrial fibrillation (HCC) - ICD9: 427.31, ICD10: I48.0 - Chronic stable - continue metoprolol and management with Dr Page 4. Benign prostatic hyperplasia with weak urinary stream - ICD9: 600.01, 788.62, ICD10: N40.1, R39.12 - asymptomatic - PSA/PROSTSPECAG DIAG 5. Hyperlipidemia, unspecified hyperlipidemia type - ICD9: 272.4, ICD10: E78.5 - to be determined upon return of lab results - Continue current medication. - Encouraged following a low fat, low cholesterol diet. - Discussed the benefits of regular aerobic exercise and weight loss. - Check fasting lipid panel - Encouraged following a low carbohydrate, healthy oil intake diet. - LIPID PANEL BASIC 6. Vitamin D deficiency - ICD9: 268.9, ICD10: E55.9 - VITAMIN D 25 HYDROXY 7. Screening for thyroid disorder - ICD9: V77.0, ICD10: Z13.29 - TSH BLD Gurvinder Mortensen APRN.APPLICATION SUPPORT ANALYST documented in this encounter [facility] 04-28-2022 History of Presen t illness Narrative This note was created using NoteWriter. Subjective Ruma Mcintyre is a 82 year old male here today for follow up on [place] ER visit on 04/08/22 for dizziness. PMH afib, HTN, BPH. Pt has not seen here since 2019. He was new to me in 07/2020. [facility] P[facility] Dr Cameron. He is here today with his da Keenan. During ER visit his ECG was NSR, NIH stroke scale 0. CT showed no actue abnormalities. Dx vertigo. Dizziness: reports at times mostly with movement. Reports he becomes dizzy if he turns or makes a quick move he will feel dizzy. Reports no room spinning. States he just feels like he is going to lose balance. Reports when it started he would hear whooshing in his ears. Reports when lights are off or dim he is feels more off balance. Denies fever, chills, feliz, URI symptoms, ear pain, cough, SOB, CP, palpitations. EKG INTERPRETATION: Ordered and Reviewed Rhythm: Normal sinus rhythm Rate: 63 [place]: Normal axis Intervals: Normal UT interval QRS Complex: Normal ST Segment: Normal ST-T segments QT Interval: Normal Compared with Prior: None available Interpretation performed by Ruma Call MD CT brain 04/08/22 IMPRESSION: No acute intracranial findings. Component Latest Ref Rng & Units 04/08/2022 WBC 3.70 - 11.00 k/uL 5.80 RBC 4.20 - 6.00 m/uL 3.79 (L) Hemoglobin 13.0 - 17.0 g/dL 12.3 (L) Hematocrit 39.0 - 51.0 % 37.1 (L) MCV 80.0 - 100.0 fL 97.9 MCH 26.0 - 34.0 pg 32.5 MCHC 30.5 - 36.0 g/dL 33.2 RDW-CV 11.5 - 15.0 % 12.4 Platelet Count 150 - 400 k/uL 231 MPV 9.0 - 12.7 fL 8.9 (L) Neut% % 59.5 Abs Neut (ANC) 1.45 - 7.50 k/uL 3.45 Lymph% % 24.3 Abs Lymph 1.00 - 4.00 k/uL 1.41 Hale% % 13.1 Abs Hale <0.87 k/uL 0.76 Eosin% % 2.4 Abs Eosin <0.46 k/uL 0.14 Baso% % 0.7 Abs Baso <0.11 k/uL 0.04 DTYPE Auto Glucose 74 - 99 mg/dL 106 (H) BUN 9 - 24 mg/dL 8 (L) Creatinine 0.73 - 1.22 mg/dL 0.84 Sodium 136 - 144 mmol/L 141 Potassium 3.7 - 5.1 mmol/L 4.9 Chloride 97 - 105 mmol/L 102 CO2 22 - 30 mmol/L 28 Anion Gap 9 - 18 mmol/L 11 Calcium 8.5 - 10.2 mg/dL 10.2 eGFR >=60 mL/min/1.73m 87 Review of Systems Constitutional: Negative for chills, fatigue and fever. HENT: Positive for rhinorrhea and tinnitus. Negative for congestion, dental problem, ear pain, postnasal drip, sinus pressure and sinus pain. 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 Hearing aide right. Respiratory: Negative for cough, shortness of breath and wheezing. Cardiovascular: Negative for chest pain, palpitations and leg swelling. Gastrointestinal: Negative for diarrhea, nausea and vomiting. Neurological: Positive for dizziness. Negative for headaches. See HPI Objective Temp 36.8 C (98.2 F) Resp 18 Ht 172.7 cm (5' 8 ) Wt 60.3 kg (133 lb) SpO2 97% BMI 20.22 kg/m 04/28/22 1133 04/28/22 1136 04/28/22 1138 Orthostatic BP: 140/72 140/72 132/72 BP Site: Right Arm Right Arm Right Arm BP Position: Supine Sitting Standing BP Cuff Size: Regular Adult Regular Adult Regular Adult Orthostatic Pulse: 53 55 65 Resp: 18 Temp: 36.8 C (98.2 F) SpO2: 97% Weight: 60.3 kg (133 lb) Height: 172.7 cm (5' 8 ) Physical Exam Vitals and nursing note reviewed. Constitutional: General: He is not in acute distress. Appearance: Normal appearance. He is not ill-appearing. HENT: Head: Normocephalic and atraumatic. Right Ear: Tympanic membrane, ear canal and external ear normal. There is no impacted cerumen. Left Ear: Tympanic membrane, ear canal and external ear normal. There is no impacted cerumen. Nose: Nose normal. Eyes: Extraocular Movements: Extraocular movements intact. Right eye: No nystagmus. Left eye: No nystagmus. Pupils: Pupils are equal, round, and reactive to light. Cardiovascular: Rate and Rhythm: Normal rate and regular rhythm. Pulses: Normal pulses. Heart sounds: Normal heart sounds. Pulmonary: Effort: Pulmonary effort is normal. Breath sounds: Normal breath sounds. No wheezing, rhonchi or rales. Skin: General: Skin is warm and dry. Neurological: Mental Status: He is alert and oriented to person, place, and time. Cranial Nerves: Cranial nerves 2-12 are intact. No cranial nerve deficit. Sensory: Sensation is intact. Motor: Motor function is intact. No weakness. Coordination: Coordination is intact. Coordination normal. Gait: Gait normal. Comments: Negative dik halpike Psychiatric: Mood and Affect: Mood normal. Behavior: Behavior normal. Thought Content: Thought content normal. Judgment: Judgment normal. Assessment and Plan ASSESSMENT/PLAN: 1. Vertigo - ICD9: 780.4, ICD10: R42 - symptoms consistent with vertigo. He did have negative Dik Halpike on exam but also currently not symptomatic. No concerning findings on exam. - discussed management of vertigo. Discussed referral to ENT if persists or worsens. Discussed to change positions slowly to avoid falls. - pt has antivert at home which he states he hasnt been taking. Instructed to take this as needed. Gurvinder Mortensen APRN.CARLYN I spent a total of 45 minutes on the date of the service which included preparing to see the patient, [id number] patient care, completing clinical documentation, obtaining and/or reviewing separately obtained history, performing a medically appropriate examination, and counseling and educating the patient/family/caregiver. documented in this encounter [facility] 04-17-2022 Miscellaneous Notes The patient has been scheduled for the first available ED appointment on 04/28/22 at 11:20 am. The patient himself has been notified. Kalpana Prajapati ----- Message from Cassidy Perera sent at 04/17/2022 8:37 AM EDT ----- Regarding: Medicine/ Gurvinder Mortensen/ ED follow up within the week Subject Line Format: Medicine / [Provider Name] / [Issue] Patient has been identified by name and Date of (Y/N): y Patient: Ruma Mcintyre Date of : 1940 Provider for this encounter: Gurvinder Mortensen APRN.CNP Reason for the call/escalation: patient will need a follow up ED appt as soon as possible-only wanted Moshe Was Patient Referred to 91/Seek Emergency Treatment (Y/N): n/a Did Patient Agree (Y/N): n/a Was An Attempt Made To Transfer The Patient To The Office (Y/N): n/a Were You Able To Reach Someone At The Office (Y/N): n/a If Yes - Patient Was Transferred To (Caregivers Name): n/a If No - Which [facility] Leadership Flour Blender Did You Speak With Regarding This Patient: n/a Was an appointment scheduled (Y/N): n/a Reason patient was requesting visit (RFV/signs and symptoms/diagnosis) : ed follow up Person calling if other than patient: Keenan daughter Return call to if other than patient: keenan rodrigues Best contact number: [phone] Thank you, Cassidy Perera April 17, 2022 8:38 AM documented in this encounter [facility] 04-10-2022 History of Presen t illness Narrative ED Follow Up: Patient discharged from [facility] ED on 04/08/22. 1. How are you feeling since your ED visit? Yes Have your symptoms improved or resolved? Yes 2. Were you prescribed any medications while in the ED or advised to stop any medication? Yes - If yes, were you able to fill your prescriptions? Yes -if stopped medication, what was the medication? N/A 3. Were you advised to schedule a follow up appointment with your provider? Yes - If no, Do you feel like you need an appointment scheduled? No - If yes, Do you need this scheduled now or has this already been scheduled? Not applicable 4. Were you able to contact the office or director of graduate medical education provider prior to your ED visit? No 5. Is there anything else I can do for you today? No Marlin López MA documented in this encounter [facility] Wellness examination- Primary Essential hypertension Unspecified essential hypertension Paroxysmal atrial fibrillation (HCC) Atrial fibrillation Benign prostatic hyperplasia with weak urinary stream Hyperlipidemia, unspecified hyperlipidemia type Vitamin D deficiency Unspecified vitamin D deficiency Screening for thyroid disorder [facility] Diagnosis Essential hypertension- Primary Unspecified essential hypertension Paroxysmal atrial fibrillation (HCC) Atrial fibrillation Hyperlipidemia, unspecified hyperlipidemia type Benign prostatic hyperplasia with weak urinary stream Environmental allergies Other allergy, other than to medicinal agents documented in this encounter [facility] Summary Purpose Family History No Family History Records FoundNo Family History Records FoundNo Family History Records Found Advance Directives No Advanced Directives Records FoundDocuments on File Type Date Recorded 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 Advance Directive(s) 04/08/2022 10:55 AM Advance Directive(s) 09/22/2017 8:02 AM Documents on File Type Date Recorded 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 Advance Directive(s) 10/24/2022 12:19 PM Additional Source Comments (unrecognized sect ion and content) No Status Records FoundNo Status Records FoundNo Status Records Found INFORMATION SOURCE (unrecogn ized section and content) DATE CREATED AUTHOR AUTHOR'S ORGANIZ ATION 10/24/2021 [facility] DATE CREATED AUTHOR AUTHOR'S ORGANIZ ATION 08/10/2023 [facility] Source Comments (unrecognize d section and content) In the event this informatio n is protected by the Federal Confidentiality of Alcohol and Drug Abuse Patient Records regulations: The Federal rules restrict any use of the information to criminally investigate or prosecute any alcohol or drug abuse patient.[facility] CenterIn the event this information is protected by the Federal Confidentiality of Alcohol and Drug Abuse Patient Records regulations: The Federal rules restrict any use of the information to criminally investigate or prosecute any alcohol or drug abuse patient.[facility] CenterIn the event this information is protected by the Federal Confidentiality of Alcohol and Drug Abuse Patient Records regulations: The Federal rules restrict any use of the information to criminally investigate or prosecute any alcohol or drug abuse patient.[facility] CenterIn the event this information is protected by the Federal Confidentiality of Alcohol and Drug Abuse Patient Records regulations: The Federal rules restrict any use of the information to criminally investigate or prosecute any alcohol or drug abuse patient.[facility] CenterIn the event this information is protected by the Federal Confidentiality of Alcohol and Drug Abuse Patient Records regulations: The Federal rules restrict any use of the information to criminally investigate or prosecute any alcohol or drug abuse patient.[facility] CenterIn the event this information is protected by the Federal Confidentiality of Alcohol and Drug Abuse Patient Records regulations: The Federal rules restrict any use of the information to criminally investigate or prosecute any alcohol or drug abuse patient.[facility] CenterIn the event this information is protected by the Federal Confidentiality of Alcohol and Drug Abuse Patient Records regulations: The Federal rules restrict any use of the information to criminally investigate or prosecute any alcohol or drug abuse patient.[facility] CenterIn the event this information is protected by the Federal Confidentiality of Alcohol and Drug Abuse Patient Records regulations: The Federal rules restrict any use of the information to criminally investigate or prosecute any alcohol or drug abuse patient.[facility] CenterIn the event this information is protected by the Federal Confidentiality of Alcohol and Drug Abuse Patient Records regulations: The Federal rules restrict any use of the information to criminally investigate or prosecute any alcohol or drug abuse patient.[facility] Care Teams (unrecognized sec tion and content) 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 Start Date End Date Gurvinder Mortensen, [employer] WORKER.APPLICATION SUPPORT ANALYST [address], [place] [id number] PCP - General Internal Medicine 07/05/20 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 Start Date End Date Gurvinder Mortensen, [employer] WORKER.APPLICATION SUPPORT ANALYST [address], [place] [id number] PCP - General Internal Medicine 07/05/20 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 Start Date End Date Gurvinder Mortensen, [employer] WORKER.APPLICATION SUPPORT ANALYST [address], [place] [id number] PCP - General Internal Medicine 07/05/20 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 Start Date End Date Gurvinder Mortensen, [employer] WORKER.APPLICATION SUPPORT ANALYST [address], [place] [id number] PCP - General Internal Medicine 07/05/20 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 This clinical summary was aggregated from multiple sources. Caution should be exercised in using it in the provision of clinical care. This summary normalizes information from multiple sources, and as a consequence, information in this document may materially change the coding, format and clinical context of patient data. In addition, data may be omitted in some cases. CLINICAL DECISIONS SHOULD BE BASED ON THE PRIMARY CLINICAL RECORDS. [facility]. provides no warranty or guarantee of the accuracy or completeness of information in this document.
[2023-12-02 11:24] LABS: Anion Gap 7 (5-15); BUN 15 mg/dL (7-18); BUN/Creat Ratio 17.6 RATIO (10-20); Calcium,Total 9.7 mg/dL (8.5-10.1); Chloride 107 mmol/L (98-107); Creatinine, Serum 0.85 mg/dL (0.70-1.30); EST Glomerular Filtration Rate 91 mL/min (>60); Est Glom Filt Rate - Afr Amer 110 mL/min (>60); Glucose 97 mg/dL (74-106); Potassium 4.3 mmol/L (3.5-5.1); Sodium Level 144 mmol/L (136-145)
== END | disposition home or self-care (01) ==
LOC: LAB 09:55
PROVIDERS: PCP Nurse Practitioner Adult Health; Referring Provider Internal Medicine Cardiovascular Disease; Visit Provider Internal Medicine Cardiovascular Disease
DX: I10 Essential (primary) hypertension (principal); I49.3 Ventricular premature depolarization; R00.2 Palpitations
CPT/HCPCS: 36415; 80048

== ENCOUNTER → 2024-01-15 | Outpatient (CLI) | payer MEDICARE, SELFPAY ==
[2024-01-15 14:56] LABS: Anion Gap 4 (5-15); BUN 16 mg/dL (7-18); BUN/Creat Ratio 15.1 RATIO (10-20); Calcium,Total 9.5 mg/dL (8.5-10.1); Chloride 106 mmol/L (98-107); Creatinine, Serum 1.06 mg/dL (0.70-1.30); EST Glomerular Filtration Rate 71 mL/min (>60); Est Glom Filt Rate - Afr Amer 85 mL/min (>60); Glucose 121 mg/dL (74-106); Potassium 4.9 mmol/L (3.5-5.1); Sodium Level 140 mmol/L (136-145)
== END | disposition home or self-care (01) ==
LOC: LAB 14:03
PROVIDERS: PCP Nurse Practitioner Adult Health; Referring Provider Nurse Practitioner Family; Visit Provider Nurse Practitioner Family
DX: I10 Essential (primary) hypertension (principal)
CPT/HCPCS: 36415; 80048